=== PATIENT | male | born 1990 | race Caucasian/White ===

== ENCOUNTER 2018-09-13 12:15 | Emergency (ER) | payer MEDICAID ==
[~2018-09-13] VITALS: Ht 167.6 cm; Wt 70.5 kg
[2018-09-13] MEDS ORDERED: BACITRACIN 0.9 GM PACKET OINTMENT TP ONE (13:00)
[2018-09-13] MEDS ORDERED: GELATIN SPONGE,ABSORBABLE 50 MM TP ONE (13:00)
[2018-09-13] MEDS ORDERED: IBUPROFEN 400 MG TABLET PO ONE (13:00)
[2018-09-13] MEDS ORDERED: PERTUSS(ACELL),DIPH,TET VAC/PF 0.5 ML VIAL IM ONE (13:00)
[2018-09-13] MEDS ORDERED: LIDOCAINE/PF 1% 5 ML VIAL INJ ONE (13:30)
[2018-09-13 14:20] VITALS: BP 120/78
== END 2018-09-13 15:21 | disposition home or self-care (01) ==
LOC: EMS 12:20
DX: S61.312A Laceration without foreign body of right middle finger with damage to nail, initial encounter (principal); W26.0XXA Contact with knife, initial encounter; Y93.89 Activity, other specified; Y92.89 Other specified places as the place of occurrence of the external cause; Y99.8 Other external cause status
CPT/HCPCS: 12002; 73130; 90471; 90715; 96372; 99283; J0690; J2001